=== PATIENT | male | born 1945 | race Caucasian/White ===

== ENCOUNTER 2017-01-17 12:41 | Inpatient (IN) | payer MEDICARE ==
[2017-01-16 12:18] LABS: HEMATOCRIT 39.4 % (40.0-51.0)
[2017-01-16 12:29] LABS: BUN (BLOOD UREA NITROGEN) 22 MG/DL (6-23); CALCIUM, SERUM 9.1 MG/DL (8.5-10.4); CHLORIDE, SERUM 104 MMOL/L (96-112); CO2 (CARBON DIOXIDE) 29 MMOL/L (24-34); CREATININE 1.31 MG/DL (0.70-1.30); GFR AFRICAN AMERICAN 64 ML/MIN (>=60); GFR NON AFRICAN AMERICAN 55 ML/MIN (>=60); GLUCOSE, SERUM 71 MG/DL (60-99); POTASSIUM, SERUM 4.5 MMOL/L (3.5-5.3); SODIUM, SERUM 141 MMOL/L (135-148)
--- NOTE | ~2017-01-17 | CN ---
Consultation Report [place] [id number] [facility] [place]. [address] NAME: LYNN DAVID : 49 STATUS : ADM IN PAT#: [id number] AGE: 71 ADM/REG DATE : 01/18/17 MR#: [id number] REPORT SERV DATE: 01/22/17 DICTATED BY: DAYTONKAROL REY DATE: 01/21/17 REPORT STATUS : Draft TRANSCRIBED BY: MODL DATE: 01/21/17 CONSULTATION DATE OF CONSULTATION: 01/21/2017 REASON FOR CONSULTATION: Consulted regarding diabetes management. REQUESTING PHYSICIAN: Dr. Manny Stroud III. IDENTIFYING DATA: PRIMARY CARE PHYSICIAN: Caesar Bob MD. UROLOGIST: Manny Stroud III, M.D. HISTORY OF PRESENT ILLNESS: This is a 71-year-old, male, admitted per Dr. Stroud with left renal stones. He has a history of sleep apnea, on home CPAP; renal stones; diabetes type 2; allergies; sinus problems; and neuropathy of the lower extremities. He had a previous cystoscopy with stone retrieval and stent on 12/19/2016 at [facility]. The patient has been newly diagnosed he states with diabetes. The hospitalist group has been consulted to help with management of blood sugars. The patient's history was obtained through interview with the patient along with review of [employer], [employer], senior health consultant notes, old medical records. PAST MEDICAL HISTORY: 1. Bilateral lower extremity neuropathy. 2. Sinus problems. 3. Allergies. 4. Wears glasses. 5. Sleep apnea on home CPAP. 6. Reflex. 7. Diabetes type 2. 8. Renal stones. HOME MEDICATIONS: 1. Glucotrol 5 mg p.o. before breakfast. 2. Lantus 20 units subcu at bedtime. 3. Flomax 0.4 mg p.o. daily. ALLERGIES: NO KNOWN ALLERGIES. SOCIAL HISTORY: The patient is presently single. He is a , has four children. Lives in a single-level home. He does not smoke. No illicit drug use. Alcohol use is rare. Consultation Report [place] [id number] [facility] [place]. [address] NAME: LYNN DAVID : 49 STATUS : ADM IN PAT#: [id number] AGE: 71 ADM/REG DATE : 01/18/17 MR#: [id number] REPORT SERV DATE: 01/22/17 DICTATED BY: KAROL BURRIS DATE: 01/21/17 REPORT STATUS : Draft TRANSCRIBED BY: BRANDO DATE: 01/21/17 FAMILY HISTORY: History is unknown. The patient was adopted. SURGICAL HISTORY: cystoscopy with stone retrieval and stent at [facility] on 12/19/2016. REVIEW OF SYSTEMS: Negative other than what is in HPI. The patient is alert and oriented x3. No complaints of shortness of breath. No nausea or vomiting. No abdominal pain. No chest pain. No fever. Displays no agitation or confusion. PHYSICAL EXAMINATION: VITAL SIGNS: From today, blood pressure 126/66, respiratory rate 15, heart rate 99, temperature 97.6, O2 saturation 94% on 2 L nasal cannula. GENERAL: This is a 71-year-old male, resting in bed in no acute distress. He is on the telephone, talking with a friend. NEURO: His head is atraumatic, normocephalic. He is alert and oriented x3. His cranial nerves II through XII are grossly intact. His mood is appropriate. NECK: Supple. Trachea is midline. No JVD noted. No obvious thyromegaly or lymphadenopathy. EENT: His sclerae are nonicteric. Pupils are equal and reactive to light. Nares are patent. Mucous membranes moist. Tongue is midline without deviation. Soft palate rises equally on phonation. CHEST: No pain with palpation. LUNGS: Clear to auscultation bilaterally. He has normal respiratory effort. No increased work of breathing with conversation. He is on O2. He is encouraged to use his incentive spirometer. CARDIOVASCULAR: S1, S2. No obvious murmurs, rubs, or gallops. He displays auscultation of a regular rhythm. Last bowel movement was on 01/19/2017. EXTREMITIES: Distal pulses present. No edema. No calf tenderness. Has SCDs intact bilaterally for DVT prophylaxis. SKIN: Warm and dry. No unusual rashes or lesions. Normal color and turgor. PSYCH: The patient is cooperative, does not want to discuss his health at present since he is talking on the phone. Appropriate affect. SURGICAL SITE: Dressing is clean, dry, and intact. The patient has two nephrostomy tubes placed to the left side. He also has a Storey catheter in place. Tubes and catheter are draining serosanguineous drainage. LABORATORY DATA: Sodium 143, potassium 3.6, chloride 106, BUN 16, creatinine 1.41, GFR 58, glucose 146, calcium 8.5. White blood cell 11.5, hemoglobin 11.9, hematocrit 36.4, platelets 312, INR 1.1. Present blood sugar is 108, previous blood sugar was 146, 144 and 127. The patient had an EKG on 01/16/2017 which showed an abnormal EKG. Normal sinus rhythm, right bundle branch block, left anterior fascicular block with a rate of 76. Consultation Report [facility] [address] [place]. [address] NAME: LYNN DAVID : 49 STATUS : ADM [facility]#: [id number] AGE: 71 ADM/REG DATE : 01/18/17 MR#: [id number] REPORT SERV DATE: 01/22/17 DICTATED BY: KAROL BURRIS DATE: 01/21/17 REPORT STATUS : Draft TRANSCRIBED BY: BRANDO DATE: 01/21/17 ASSESSMENT/PLAN: 1. Diabetes type 2. The patient states his average blood sugars are 88 to 110, and he checks his blood sugars four times a day. He had diabetic teaching class all day he states last Saturday. He is going to be placed on an 1800 ADA diet. When he is eating, he still has hypoactive bowel sounds tonight, and he has taken few sips of liquid and ice chips. We will check his blood sugar at 2 a.m., put him on a sliding scale level 1. He is normally on Levemir and Glucotrol at home. His Glucotrol is held for now. His Levemir will be held for tonight and will resume tomorrow, and we will check hemoglobin A1c on his a.m. labs. 2. Gastroesophageal reflux disease, he has a history of reflux, aware. We will place him on Protonix 40 mg p.o. daily p.r.n. as needed for reflux. 3. Neuropathy and postop pain, aware. The patient states he is not on any medications for his neuropathy at home. Postoperatively for pain, he had p.r.n. pain medications ordered. He also had a lengthy surgery. We are going to place him on telemetry at least for 24 hours and continue O2 saturation monitor, and he is on CPAP, it is noted that his previous EKG was abnormal. 4. A.m. labs, hemoglobin A1c, BMP, CBC, magnesium, phosphorus, renal profile, and an EKG in the morning. The hospitalist group would like to thank you for this consultation, please let us know if we could be of any further assistance. /BRANDO Karol Burris NP / [id number] CC: Kirstin Nieves III, MD
--- NOTE | ~2017-01-17 | DS ---
Discharge Summary [facility] [address] [place]. [address] NAME: LYNN DAVID : 49 STATUS : DIS IN PAT#: [id number] AGE: 71 ADM/REG DATE : 01/18/17 MR#: [id number] REPORT SERV DATE: 02/02/17 DICTATED BY: MANNY STROUD III DATE: 02/01/17 REPORT STATUS : Draft TRANSCRIBED BY: BRANDO DATE: 02/01/17 Data Collection from hospitalization DISCHARGE DIAGNOSES: 1. Left staghorn calculus. 2. Diabetes. 3. Sleep apnea. 4. Bilateral lower extremity neuropathy. 5. Reflux. CONSULTATIONS: Karol Yao NP PROCEDURES PERFORMED: 1. Cysto removal of bilateral ureteral stents and left percutaneous nephrostolithotomy with removal of 4 cm staghorn on 01/21/2017. 2. Insertion of NU catheter on 01/17/2017. 3. Removal of NU catheter with replacement of NU catheter on 01/19/2017. MEDICATIONS: Glucotrol 5 mg before breakfast, Lantus 20 units subcutaneously at bedtime, and Flomax 0.4 mg daily. CONDITION AT DISCHARGE: Stable. DISPOSITION: The patient was discharged home on an 1800-calorie cardiac/diabetic, gluten- free diet with activities as instructed. He would follow up with me on 01/29/2017, and would follow up with his primary care provider as needed. HOSPITAL COURSE: This is a 71-year-old man who presented with left renal stone. The patient has a history of sleep apnea and is on home CPAP, he has renal stones, type 2 diabetes, as well as sinus problems and neuropathy of the lower extremities. He had undergone previous cystoscopy with stone retrieval and stent on 12/19/2016 at [facility]. He was newly diagnosed with diabetes. It was felt that the patient would need to undergo left percutaneous nephrostolithotomy. On 01/17/2017, he had undergone placement of NU catheter drain. On the day of this admission, his procedure was canceled as his blood pressure had dropped after induction. He had a reported temperature of 100.5. The procedure was aborted and he was going to be given 1 g of vancomycin and Zosyn. Blood and urine cultures were going to be performed. He was admitted to the hospital for further evaluation and treatment. On 01/19/2017, he said he was feeling good. He underwent successful removal of the indwelling NU catheter and replacement of a new 10-Chinese NU catheter with the proximal loop in the left pelvis. The distal loop was removed and the distal tip of the catheter was in the distal left ureter. On 01/20/2017, his blood pressure was low which is chronic. Nephrostomy tube had been changed. Blood and urine cultures were negative. On 01/21/2017, he was afebrile. The patient does have a left staghorn calculus. He was taken to the operating room where he underwent the above-mentioned procedure. He tolerated this well, and there were no complications. Following this, he was seen by Karol Yao. Discharge Summary [address] [place]. [address] NAME: LYNN DAVID : 49 STATUS : DIS IN PAT#: [id number] AGE: 71 ADM/REG DATE : 01/18/17 MR#: [id number] REPORT SERV DATE: 02/02/17 DICTATED BY: MANNY STROUD III DATE: 02/01/17 REPORT STATUS : Draft TRANSCRIBED BY: BRANDO DATE: 02/01/17 She had been asked to help with management of his blood sugars. He had an abnormal EKG on 01/16/2017. He had normal sinus rhythm with right bundle-branch block, left anterior fascicular block with a rate of 76. The patient said that he checks his blood sugars four times a day. He had undergone diabetic teaching. He was going to be placed on an 1800- calorie diabetic diet. He was going to be placed on level 1 sliding scale insulin. At home, he is normally on Levemir and Glucotrol. Glucotrol was on hold for now. Levemir would be held that evening and resume the following day. Hemoglobin A1c was going to be checked. The patient has gastroesophageal reflux disease and he was placed on Protonix. The patient said that he is not on any medication for his neuropathy at home. He was receiving pain medication postoperatively. He was going to be placed on telemetry for at least 24 hours and have continuous O2 saturation monitoring. He is on CPAP. The next day, he underwent diabetes education. He tolerated the nephrostomy tube being plugged. On 01/23/2017, his abdomen was soft and nontender. He was wanting to go home. We were going to remove the nephrostomy tube and then the Storey catheter. Discharge instructions were given. Due to his improved and stable condition, he was discharged home with the above- stated instructions. Information collected by: Suzie Hunter I submit the above information as my discharge summary. KISHAN/BRANDO Manny Stroud III, M.D. / [id number] CC: Kirstin Nieves III, MATTHEW J.
--- NOTE | ~2017-01-17 | OP ---
Record Of Operation [facility] [address] [place]. [address] NAME: LYNN DAVID : 49 STATUS : ADM IN PAT#: [id number] AGE: 71 ADM/REG DATE : 01/18/17 MR#: [id number] REPORT SERV DATE: 01/22/17 DICTATED BY: MANNY CLEMONS III DATE: 01/21/17 REPORT STATUS : Draft TRANSCRIBED BY: MODMontana DATE: 01/21/17 DATE OF PROCEDURE: 01/21/2017 PROCEDURE: Cysto removal of bilateral ureteral stents and left percutaneous nephrostolithotomy with removal of 4 cm staghorn. PREOPERATIVE DIAGNOSIS: Left staghorn calculus. POSTOPERATIVE DIAGNOSIS: Left staghorn calculus. ANESTHESIA: General. DESCRIPTION OF PROCEDURE: Following induction of adequate general anesthesia, the patient was in the bed in the supine position. Cystoscopy was done, but double-J stents were removed. He was then carefully placed in the prone position, padding the shoulders and the neck, head, and arms. A pad was placed under the chest and one under the symphysis. He was secured. The nephrostomy dressing was removed, and the system opacified. A Bentson wire was used to gain access to the bladder, following which a Georgiana catheter was placed and a two superstiff catheters were placed. Incision was made and with the NephroMax balloon, inflated to approximately 14 atmospheres. The sheath was found to be in the lower pole calyx. The stone was fairly soft, and I was able to initially work quite well on the stone. It was apparent that this angle would not allow me to reach the top of the kidney. After approximately an hour and a half, I had taken out 2/3rds of the stone, but could no longer reach the stone except with a flexible scope, and there was much too large a volume of stone to deal with it with a flexible cystoscope. Dr. Ren came in and put an upper pole calyx access. It was dilated and the sheath was passed just inside the collecting system. We immediately saw the stone, and I was able to remove the bulk of the stone. There was still a sizable fragment in the extreme upper pole, and I used a flexible scope to dislodge it. It fell down into the lower pole and was broken up and vacuumed from the kidney with the ultrasonic wand. There was some bleeding during the procedure, especially after the second access was placed. I had to adjust the sheath to allow me to put a [place] tip catheter in. So, the infundibulum was dilated slightly. Examination of the kidney revealed no definite stones remaining. Unfortunately, there were some clots that could not be dislodged, but on x-ray, there were no significant stones. Flexible ureteroscopy was done to the level just above the ureter, and no definite stones were seen. The system was opacified. There was no extravasation, and a 6 x 28 stent was placed with a loop in the bladder and a loop in the renal pelvis. A Councill tip catheter of 20-Albanian size was placed in the upper access with the tip just above the UPJ. In the lower access, the tube was placed with the tip just inferior to the UPJ. The system was opacified. Both catheters appeared to be in good position. All wires were removed. The stent remained in its previous position, and both Councill catheters were secured with 3-0 silk sutures. He tolerated the procedure well. Blood loss was approximately 400 mL to 500 mL. OB/MODL Record Of [address] [address] NAME: LYNN DAVID : 49 STATUS : ADM IN [facility]#: [id number] AGE: 71 ADM/REG DATE : 01/18/17 MR#: [id number] REPORT SERV DATE: 01/22/17 DICTATED BY: MANNY CLEMONS III DATE: 01/21/17 REPORT STATUS : Draft TRANSCRIBED BY: BRANDO DATE: 01/21/17 Manny Clemons III, M.D. / [id number]
--- NOTE | ~2017-01-17 | OP ---
Record Of Operation [facility] [address] [place] [address] NAME: LYNN DAVID : 49 STATUS : ADM IN PAT#: [id number] AGE: 71 ADM/REG DATE : 01/18/17 MR#: [id number] REPORT SERV DATE: 01/21/17 DICTATED BY: MANNY CLEMONS III DATE: 01/18/17 REPORT STATUS : Draft TRANSCRIBED BY: MODL DATE: 01/18/17 DATE OF PROCEDURE: 01/18/2017 Planned procedure was a left percutaneous nephrostolithotomy. The procedure was canceled as his blood pressure has dropped precipitously after induction and DEFENSE ATTORNEY recorded a temperature of 100.5. We aborted the procedure and I am going to give him a gram of vancomycin and 3.375 g of Zosyn. We will do blood and urine cultures in the recovery room. OB/MODL Manny Clemons III, M.D. / [id number] CC: Kirstin Nieves III, MD
[~2017-01-17 12:41] MED LIST: FLOMAX4 PO; GLUCOTROL5 PO; LANTUS SC
[2017-01-17 13:42] LABS: INTERNATIONAL NORMAL RATI 1.1 UNITS (-); PARTIAL THROMBO TIME 32.6 SEC (22.5-37.2); PROTIME (NOT ORD) 14.1 SEC (12.0-14.5)
[2017-01-17 13:48] LABS: BUN (BLOOD UREA NITROGEN) 22 MG/DL (6-23); CALCIUM, SERUM 9.2 MG/DL (8.5-10.4); CHLORIDE, SERUM 106 MMOL/L (96-112); CO2 (CARBON DIOXIDE) 25 MMOL/L (24-34); CREATININE 1.42 MG/DL (0.70-1.30); GFR AFRICAN AMERICAN 58 ML/MIN (>=60); GFR NON AFRICAN AMERICAN 50 ML/MIN (>=60); GLUCOSE, SERUM 123 MG/DL (60-99); POTASSIUM, SERUM 3.9 MMOL/L (3.5-5.3); SODIUM, SERUM 142 MMOL/L (135-148)
[2017-01-17 14:43] LABS: BASOPHILS 0.8 %; BASOPHILS ABSOLUTE 0.07 10/3/uL (0.0-0.16); EOSINOPHILS 7.2 %; EOSINOPHILS ABSOLUTE 0.66 10/3/uL (0.0-0.53); HEMATOCRIT 37.8 % (40.0-51.0); HEMOGLOBIN 12.4 g/dL (13.6-17.8); IMMATURE GRANULOCYTES 0.4 %; IMMATURE GRANULOCYTES ABSOLUTE 0.04 10/3/uL (0.0-0.11); LYMPHOCYTES 24.3 %; LYMPHOCYTES ABSOLUTE 2.22 10/3/uL (0.67-4.30); MEAN CORPUS HGB CONC 32.8 g/dL (32.0-36.0); MEAN CORPUSCULAR VOLUME 82.2 fL (80-100); MEAN PLATELET VOLUME 10.9 fL (9.2-13.0); MONOCYTES 8.9 %; MONOCYTES ABSOLUTE 0.81 10/3/uL (0.21-1.20); NEUTROPHILS 58.4 %; NEUTROPHILS ABSOLUTE 5.32 10/3/uL (2.02-8.40); PLATELET COUNT 364 10/3/uL (150-400); RBC DISTRIBUTION WIDTH 15.7 % (12.0-16.0); WHITE BLOOD CELLS 9.1 10/3/uL (4.5-10.5)
[2017-01-17 14:44] LABS: MANUAL DIFF NO %
[2017-01-18 03:11] LABS: BASOPHILS 0.5 %; BASOPHILS ABSOLUTE 0.05 10/3/uL (0.0-0.16); EOSINOPHILS 2.5 %; EOSINOPHILS ABSOLUTE 0.26 10/3/uL (0.0-0.53); HEMATOCRIT 35.1 % (40.0-51.0); HEMOGLOBIN 11.4 g/dL (13.6-17.8); IMMATURE GRANULOCYTES 0.5 %; IMMATURE GRANULOCYTES ABSOLUTE 0.05 10/3/uL (0.0-0.11); LYMPHOCYTES 13.9 %; LYMPHOCYTES ABSOLUTE 1.47 10/3/uL (0.67-4.30); MEAN CORPUS HGB CONC 32.5 g/dL (32.0-36.0); MEAN CORPUSCULAR HEMOGLOB 26.8 pg (26.0-34.0); MEAN CORPUSCULAR VOLUME 82.6 fL (80-100); MEAN PLATELET VOLUME 10.5 fL (9.2-13.0); MONOCYTES 5.2 %; MONOCYTES ABSOLUTE 0.55 10/3/uL (0.21-1.20); NEUTROPHILS 77.4 %; NEUTROPHILS ABSOLUTE 8.23 10/3/uL (2.02-8.40); PLATELET COUNT 299 10/3/uL (150-400); RBC DISTRIBUTION WIDTH 15.5 % (12.0-16.0); RED CELL COUNT 4.25 10/6/uL (4.7-6.1); WHITE BLOOD CELLS 10.6 10/3/uL (4.5-10.5)
[2017-01-18 03:19] LABS: MANUAL DIFF NO %
[2017-01-18 03:24] LABS: BUN (BLOOD UREA NITROGEN) 19 MG/DL (6-23); CALCIUM, SERUM 8.8 MG/DL (8.5-10.4); CHLORIDE, SERUM 107 MMOL/L (96-112); CO2 (CARBON DIOXIDE) 25 MMOL/L (24-34); CREATININE 1.28 MG/DL (0.70-1.30); GFR AFRICAN AMERICAN 66 ML/MIN (>=60); GFR NON AFRICAN AMERICAN 57 ML/MIN (>=60); GLUCOSE, SERUM 127 MG/DL (60-99); POTASSIUM, SERUM 4.2 MMOL/L (3.5-5.3); SODIUM, SERUM 142 MMOL/L (135-148)
[2017-01-18 16:10] LABS: ASCORBIC ACID (UR NOT ORDER) NEG (NEG); BILIRUBIN, URINE NEGATIVE (NEG); KETONE, URINE NEGATIVE (NEG); LEUKOCYTE ESTERASE(NOT OR LARGE (NEG)
[2017-01-18 16:12] LABS: WBC (NOT ORDERED) (RFLEX) > 182 (0-5)
[2017-01-19 05:58] LABS: BASOPHILS 0.2 %; BASOPHILS ABSOLUTE 0.02 10/3/uL (0.0-0.16); EOSINOPHILS 0.1 %; EOSINOPHILS ABSOLUTE 0.01 10/3/uL (0.0-0.53); HEMATOCRIT 35.4 % (40.0-51.0); HEMOGLOBIN 11.4 g/dL (13.6-17.8); IMMATURE GRANULOCYTES 0.3 %; IMMATURE GRANULOCYTES ABSOLUTE 0.03 10/3/uL (0.0-0.11); LYMPHOCYTES 9.3 %; LYMPHOCYTES ABSOLUTE 0.95 10/3/uL (0.67-4.30); MEAN CORPUS HGB CONC 32.2 g/dL (32.0-36.0); MEAN CORPUSCULAR HEMOGLOB 26.6 pg (26.0-34.0); MEAN CORPUSCULAR VOLUME 82.5 fL (80-100); MEAN PLATELET VOLUME 10.4 fL (9.2-13.0); MONOCYTES 7.6 %; MONOCYTES ABSOLUTE 0.77 10/3/uL (0.21-1.20); NEUTROPHILS 82.5 %; NEUTROPHILS ABSOLUTE 8.41 10/3/uL (2.02-8.40); PLATELET COUNT 292 10/3/uL (150-400); RBC DISTRIBUTION WIDTH 15.6 % (12.0-16.0); RED CELL COUNT 4.29 10/6/uL (4.7-6.1); WHITE BLOOD CELLS 10.2 10/3/uL (4.5-10.5)
[2017-01-19 05:59] LABS: MANUAL DIFF NO %
[2017-01-19 06:13] LABS: BUN (BLOOD UREA NITROGEN) 17 MG/DL (6-23); CALCIUM, SERUM 8.5 MG/DL (8.5-10.4); CHLORIDE, SERUM 105 MMOL/L (96-112); CO2 (CARBON DIOXIDE) 26 MMOL/L (24-34); CREATININE 1.29 MG/DL (0.70-1.30); GFR AFRICAN AMERICAN 65 ML/MIN (>=60); GFR NON AFRICAN AMERICAN 56 ML/MIN (>=60); GLUCOSE, SERUM 144 MG/DL (60-99); POTASSIUM, SERUM 3.9 MMOL/L (3.5-5.3); SODIUM, SERUM 141 MMOL/L (135-148)
[2017-01-20 20:40] LABS: BASOPHILS 0.3 %; BASOPHILS ABSOLUTE 0.04 10/3/uL (0.0-0.16); EOSINOPHILS ABSOLUTE 0.58 10/3/uL (0.0-0.53); HEMATOCRIT 34.8 % (40.0-51.0); HEMOGLOBIN 11.3 g/dL (13.6-17.8); IMMATURE GRANULOCYTES 0.3 %; IMMATURE GRANULOCYTES ABSOLUTE 0.03 10/3/uL (0.0-0.11); LYMPHOCYTES 20.8 %; MANUAL DIFF NO %; MEAN CORPUS HGB CONC 32.5 g/dL (32.0-36.0); MEAN CORPUSCULAR HEMOGLOB 26.7 pg (26.0-34.0); MEAN CORPUSCULAR VOLUME 82.3 fL (80-100); MEAN PLATELET VOLUME 10.7 fL (9.2-13.0); MONOCYTES 8.9 %; MONOCYTES ABSOLUTE 1.02 10/3/uL (0.21-1.20); NEUTROPHILS 64.7 %; NEUTROPHILS ABSOLUTE 7.45 10/3/uL (2.02-8.40); PLATELET COUNT 312 10/3/uL (150-400); RBC DISTRIBUTION WIDTH 15.6 % (12.0-16.0); RED CELL COUNT 4.23 10/6/uL (4.7-6.1); WHITE BLOOD CELLS 11.5 10/3/uL (4.5-10.5)
[2017-01-20 20:53] LABS: BUN (BLOOD UREA NITROGEN) 16 MG/DL (6-23); CALCIUM, SERUM 8.5 MG/DL (8.5-10.4); CHLORIDE, SERUM 106 MMOL/L (96-112); CO2 (CARBON DIOXIDE) 27 MMOL/L (24-34); CREATININE 1.41 MG/DL (0.70-1.30); GFR AFRICAN AMERICAN 58 ML/MIN (>=60); GFR NON AFRICAN AMERICAN 50 ML/MIN (>=60); GLUCOSE, SERUM 146 MG/DL (60-99); POTASSIUM, SERUM 3.6 MMOL/L (3.5-5.3); SODIUM, SERUM 143 MMOL/L (135-148)
[2017-01-21 18:47] LABS: HEMATOCRIT 36.4 % (40.0-51.0); HEMOGLOBIN 11.9 g/dL (13.6-17.8)
[2017-01-22 05:37] LABS: BASOPHILS 0.3 %; BASOPHILS ABSOLUTE 0.03 10/3/uL (0.0-0.16); EOSINOPHILS 2.7 %; HEMATOCRIT 34.2 % (40.0-51.0); HEMOGLOBIN 11.1 g/dL (13.6-17.8); IMMATURE GRANULOCYTES 0.3 %; IMMATURE GRANULOCYTES ABSOLUTE 0.03 10/3/uL (0.0-0.11); LYMPHOCYTES 13.8 %; LYMPHOCYTES ABSOLUTE 1.55 10/3/uL (0.67-4.30); MEAN CORPUS HGB CONC 32.5 g/dL (32.0-36.0); MEAN CORPUSCULAR HEMOGLOB 26.7 pg (26.0-34.0); MEAN CORPUSCULAR VOLUME 82.2 fL (80-100); MEAN PLATELET VOLUME 10.1 fL (9.2-13.0); MONOCYTES 9.8 %; NEUTROPHILS 73.1 %; NEUTROPHILS ABSOLUTE 8.26 10/3/uL (2.02-8.40); PLATELET COUNT 296 10/3/uL (150-400); RBC DISTRIBUTION WIDTH 15.3 % (12.0-16.0); RED CELL COUNT 4.16 10/6/uL (4.7-6.1); WHITE BLOOD CELLS 11.3 10/3/uL (4.5-10.5)
[2017-01-22 05:38] LABS: MANUAL DIFF NO %
[2017-01-22 05:49] LABS: ALBUMIN 2.2 G/DL (3.5-5.0); CALCIUM, SERUM 7.9 MG/DL (8.5-10.4); CHLORIDE, SERUM 106 MMOL/L (96-112); CO2 (CARBON DIOXIDE) 26 MMOL/L (24-34); CREATININE 1.14 MG/DL (0.70-1.30); GFR AFRICAN AMERICAN 76 ML/MIN (>=60); GFR NON AFRICAN AMERICAN 65 ML/MIN (>=60); GLUCOSE, SERUM 119 MG/DL (60-99); POTASSIUM, SERUM 3.6 MMOL/L (3.5-5.3); SODIUM, SERUM 142 MMOL/L (135-148)
[2017-01-22 05:53] LABS: BUN (BLOOD UREA NITROGEN) 10 MG/DL (6-23)
[2017-01-25 20:23] LABS: SOURCE OF STONE Left Kidney (()); STONE COMPOSITION TWO DNR (())
== END 2017-01-23 22:41 | disposition home or self-care (01) | DRG 655 ==
LOC: CSSUOP 12:41 → RADHOLD 12:55 → SSU1 18:10 → SDC/OF 01-18 14:13 → PACU 01-18 14:57 → 4SO 01-18 16:50
PROVIDERS: Radiology Diagnostic Radiology; Urology
PROC: 0TJ58ZZ Inspection of Kidney, Via Natural or Artificial Opening Endoscopic (ICD-10-PCS; principal; 2017-01-17)
PROC: 0TC48ZZ Extirpation of Matter from Left Kidney Pelvis, Via Natural or Artificial Opening Endoscopic (ICD-10-PCS; 2017-01-21)
PROC: 0TP98DZ Removal of Intraluminal Device from Ureter, Via Natural or Artificial Opening Endoscopic (ICD-10-PCS; 2017-01-21)
PROC: 0T7B8DZ Dilation of Bladder with Intraluminal Device, Via Natural or Artificial Opening Endoscopic (ICD-10-PCS; 2017-01-21 14:15)
DX: N13.6 Pyonephrosis (principal); G62.9 Polyneuropathy, unspecified; G47.33 Obstructive sleep apnea (adult) (pediatric); E11.9 Type 2 diabetes mellitus without complications; K21.9 Gastro-esophageal reflux disease without esophagitis
CPT/HCPCS: 36415; 50387; 50433; 50435; 71020; 74000; 80048; 80069; 81001; 82365; 82962; 83036; 83735; 85014; 85018; 85025; 85610; 85730; 86850; 86900; 86901; 87040; 87086; 93005; 99152; 99153; A9270-GY; C1726; C1769; C1892; C1894; C2617; C2625; J0330; J0690; J1170; J1956; J2250; J2370; J2405; J2543; J2710; J3010; J3370; Q9967